=== PATIENT | female | born 1940 | race Hispanic/Latino ===

== ENCOUNTER 2017-04-03 13:18 | Inpatient (IN) | payer OTHER, MEDICARE ==
[2017-04-03 15:26] LABS: Basophils % (Auto) 0.7 % (0.0-1.8); Eosinophils % (Auto) 3.1 % (0.0-4.3); Hematocrit 28.6 % (30.3-42.9); Hemoglobin 9.3 gm/dl (10.1-14.3); Mean Corpuscular HGB Conc 33 % (30-34); Mean Corpuscular Hemoglobin 34 pg (28-32); Mean Corpuscular Volume 105 fl (79-97); Platelet Count 337 K/mm3 (140-440); Red Blood Count 2.71 M/mm3 (3.65-5.03); Red Cell Distribution Width 14.6 % (13.2-15.2); White Blood Count 15.5 K/mm3 (4.5-11.0)
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
[2017-04-03 15:34] LABS: Anion Gap 18 mmol/L; BUN/Creatinine Ratio 41; Blood Urea Nitrogen 33 mg/dL (7-17); Calcium 9.7 mg/dL (8.4-10.2); Carbon Dioxide 21 mmol/L (22-30); Chloride 105.7 mmol/L (98-107); Glucose 123 mg/dL (65-100); Potassium 5.8 mmol/L (3.6-5.0); Sodium 139 mmol/L (137-145)
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
[2017-04-03 16:17] LABS: INR 1.03 (0.87-1.13)
[2017-04-03 16:18] LABS: Partial Thromboplastin Time 27.5 Sec. (24.2-36.6)
[2017-04-03 16:25] LABS: Alanine Aminotransferase 15 units/L (7-56); Albumin/Globulin Ratio 1.8 %; Alkaline Phosphatase 58 units/L (35-129); Total Protein 6.2 g/dL (6.3-8.2)
[2017-04-03 16:26] LABS: Bilirubin,Direct < 0.2 mg/dL (0-0.2)
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
[2017-04-03] MEDS ORDERED: KIONEX PO ONE (17:22)
[2017-04-03] MEDS ORDERED: BOOSTRIX IM ONE (18:48)
[2017-04-03] MEDS ORDERED: BACTRIM DS PO ONE (18:48)
[2017-04-03] MEDS ORDERED: NACL 0.9% 500 ML 500 ML IV ONE (18:51)
[2017-04-03] MEDS ORDERED: D50W (25GM) Syringe IV ONE (20:06)
[2017-04-03] MEDS ORDERED: MORPHINE IV ONE (20:06)
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
[2017-04-04] MEDS ORDERED: MORPHINE IV PRN (00:21)
[2017-04-04] MEDS ORDERED: ZOFRAN IV PRN (00:21)
[2017-04-04] MEDS ORDERED: DULCOLAX PR PRN (00:21)
[2017-04-04] MEDS ORDERED: MILK OF MAGNESIA PO PRN (00:21)
[2017-04-04] MEDS ORDERED: LEVAQUIN 500MG/100ML 500 MG/100 ML BAG IV ONE ×2 (00:45→01:00)
[2017-04-04] MEDS ORDERED: LEVAQUIN 500MG/100ML 500 MG/100 ML BAG IV SCH ×2 (01:00→22:00)
[2017-04-04] MEDS ORDERED: LOVENOX SUB-Q SCH (10:00)
[2017-04-04] MEDS: LOVENOX SUB-Q SCH (11:11)
[2017-04-04 13:14] LABS: Hematocrit 21.4 % (30.3-42.9); Hemoglobin 7.2 gm/dl (10.1-14.3); Mean Corpuscular HGB Conc 34 % (30-34); Mean Corpuscular Hemoglobin 35 pg (28-32); Mean Corpuscular Volume 105 fl (79-97); Platelet Count 218 K/mm3 (140-440); Red Blood Count 2.05 M/mm3 (3.65-5.03); Red Cell Distribution Width 14.6 % (13.2-15.2); White Blood Count 5.5 K/mm3 (4.5-11.0)
[2017-04-04 13:35] LABS: Anion Gap 17 mmol/L; BUN/Creatinine Ratio 26; Blood Urea Nitrogen 23 mg/dL (7-17); Calcium 8.3 mg/dL (8.4-10.2); Carbon Dioxide 21 mmol/L (22-30); Chloride 104.4 mmol/L (98-107); Glucose 159 mg/dL (65-100); Potassium 4.3 mmol/L (3.6-5.0); Sodium 138 mmol/L (137-145)
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
[2017-04-04 17:40] LABS: Iron 36 ug/dL (37-170); Total Iron Binding Capacity 271 mcg/dL (250-450)
[2017-04-04] MEDS: TYLENOL PO PRN (22:17)
[2017-04-05] MEDS ORDERED: LEVAQUIN 250MG/50ML 250 MG/50 ML BAG IV SCH (01:00)
[2017-04-05 06:29] LABS: Basophils % (Auto) 0.9 % (0.0-1.8); Eosinophils % (Auto) 5.2 % (0.0-4.3); Hemoglobin 6.9 gm/dl (10.1-14.3); Mean Corpuscular HGB Conc 35 % (30-34); Mean Corpuscular Hemoglobin 35 pg (28-32); Mean Corpuscular Volume 102 fl (79-97); Platelet Count 198 K/mm3 (140-440); Red Blood Count 1.95 M/mm3 (3.65-5.03); Red Cell Distribution Width 14.5 % (13.2-15.2); White Blood Count 4.9 K/mm3 (4.5-11.0)
[2017-04-05 06:33] LABS: Hematocrit 19.9 % (30.3-42.9)
[2017-04-05 06:44] LABS: Anion Gap 17 mmol/L; BUN/Creatinine Ratio 19; Blood Urea Nitrogen 17 mg/dL (7-17); Carbon Dioxide 22 mmol/L (22-30); Glucose 98 mg/dL (65-100); Potassium 4.1 mmol/L (3.6-5.0); Sodium 143 mmol/L (137-145)
[2017-04-05] MEDS ORDERED: NACL 0.9% 500 ML 500 ML IV NR (08:00)
[2017-04-05] MEDS: FEOSOL PO SCH ×2 (08:55→14:47)
[2017-04-05] MEDS: TYLENOL PO PRN ×2 (08:55→14:47)
[2017-04-05] MEDS: LOVENOX SUB-Q SCH (09:02)
--- NOTE | 2017-04-05 10:47 | Progress Note ---
Hospitalist Physical - Constitutional Vitals: Temp Pulse Resp BP Pulse Ox 98.8 F 97 H 18 115/59 92 04/05/17 08:02 04/05/17 08:02 04/05/17 08:02 04/05/17 08:02 04/05/17 08:02 Results - Labs CBC & Chem 7: 04/05/17 06:15 04/05/17 06:15 Labs: Laboratory Last Values WBC 4.9 K/mm3 (4.5-11.0) 04/05/17 06:15 RBC 1.95 M/mm3 (3.65-5.03) L 04/05/17 06:15 Hgb 6.9 gm/dl (10.1-14.3) L 04/05/17 06:15 Hct 19.9 % (30.3-42.9) L* 04/05/17 06:15 MCV 102 fl (79-97) H 04/05/17 06:15 MCH 35 pg (28-32) H 04/05/17 06:15 MCHC 35 % (30-34) H 04/05/17 06:15 RDW 14.5 % (13.2-15.2) 04/05/17 06:15 Plt Count 198 K/mm3 (140-440) 04/05/17 06:15 Lymph % (Auto) 13.9 % (13.4-35.0) 04/05/17 06:15 [place] % (Auto) 8.7 % (0.0-7.3) H 04/05/17 06:15 Eos % (Auto) 5.2 % (0.0-4.3) H 04/05/17 06:15 Baso % (Auto) 0.9 % (0.0-1.8) 04/05/17 06:15 Lymph # 0.7 K/mm3 (1.2-5.4) L 04/05/17 06:15 [place] # 0.4 K/mm3 (0.0-0.8) 04/05/17 06:15 Eos # 0.3 K/mm3 (0.0-0.4) 04/05/17 06:15 Baso # 0.0 K/mm3 (0.0-0.1) 04/05/17 06:15 Seg Neutrophils % 71.3 % (40.0-70.0) H 04/05/17 06:15 Seg Neutrophils # 3.5 K/mm3 (1.8-7.7) 04/05/17 06:15 PT 14.0 Sec. (12.2-14.9) 04/03/17 15:52 INR 1.03 (0.87-1.13) 04/03/17 15:52 APTT 27.5 Sec. (24.2-36.6) 04/03/17 15:52 Sodium 143 mmol/L (137-145) 04/05/17 06:15 Potassium 4.1 mmol/L (3.6-5.0) 04/05/17 06:15 Chloride 108.0 mmol/L (98-107) H 04/05/17 06:15 Carbon Dioxide 22 mmol/L (22-30) 04/05/17 06:15 Anion Gap 17 mmol/L 04/05/17 06:15 BUN 17 mg/dL (7-17) 04/05/17 06:15 Creatinine 0.9 mg/dL (0.7-1.2) 04/05/17 06:15 Estimated GFR > 60 ml/min 04/05/17 06:15 BUN/Creatinine Ratio 19 % 04/05/17 06:15 Glucose 98 mg/dL (65-100) 04/05/17 06:15 Calcium 8.0 mg/dL (8.4-10.2) L 04/05/17 06:15 Iron 36 ug/dL (37-170) L 04/04/17 16:58 TIBC 271 mcg/dL (250-450) 04/04/17 16:58 Ferritin 80.8 ng/mL (13.0-400.0) 04/05/17 09:15 Total Bilirubin 0.20 mg/dL (0.1-1.2) 04/03/17 15:04 Direct Bilirubin < 0.2 mg/dL (0-0.2) 04/03/17 15:04 Indirect Bilirubin 0.0 mg/dL 04/03/17 15:04 AST 37 units/L (5-40) 04/03/17 15:04 ALT 15 units/L (7-56) 04/03/17 15:04 Alkaline Phosphatase 58 units/L (35-129) 04/03/17 15:04 Troponin T < 0.010 ng/mL (0.00-0.029) 04/03/17 20:08 Total Protein 6.2 g/dL (6.3-8.2) L 04/03/17 15:04 Albumin 4.0 g/dL (3.9-5) 04/03/17 15:04 Albumin/Globulin Ratio 1.8 % 04/03/17 15:04 Vitamin B12 785.2 pg/mL (211-911) 04/04/17 16:58 Blood Type A POSITIVE 04/05/17 09:15 Antibody Screen Negative 04/05/17 09:15 Crossmatch See Detail 04/05/17 09:15
[2017-04-05] MEDS ORDERED: MIRALAX 3350 PO STA (14:17)
[2017-04-05 15:23] LABS: Hematocrit 25.3 % (30.3-42.9); Hemoglobin 8.7 gm/dl (10.1-14.3)
[2017-04-05 15:39] VITALS: BP 130/64
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
[2017-04-05 17:14] LABS: Hematocrit 25.3 % (30.3-42.9); Hemoglobin 8.5 gm/dl (10.1-14.3)
== END 2017-04-05 18:50 | disposition home or self-care (01) | DRG 605 ==
LOC: ED 13:18 → 3A 23:49
PROVIDERS: ADMIT Internal Medicine; ATTEND Internal Medicine
PROC: 30233N1 Transfusion of Nonautologous Red Blood Cells into Peripheral Vein, Percutaneous Approach (ICD-10-PCS; principal; 2017-04-03)
PROC: 3E0234Z Introduction of Serum, Toxoid and Vaccine into Muscle, Percutaneous Approach (ICD-10-PCS; 2017-04-05)
DX: S20.212A Contusion of left front wall of thorax, initial encounter (principal); R65.10 Systemic inflammatory response syndrome (SIRS) of non-infectious origin without acute organ dysfunction; E87.5 Hyperkalemia; I10 Essential (primary) hypertension; E86.0 Dehydration; S00.83XA Contusion of other part of head, initial encounter; D50.9 Iron deficiency anemia, unspecified; V49.49XA Driver injured in collision with other motor vehicles in traffic accident, initial encounter; Y93.89 Activity, other specified; Z90.710 Acquired absence of both cervix and uterus; Z79.899 Other long term (current) drug therapy; Y92.488 Other paved roadways as the place of occurrence of the external cause; Y99.8 Other external cause status; Z82.49 Family history of ischemic heart disease and other diseases of the circulatory system; Z87.891 Personal history of nicotine dependence; Z23 Encounter for immunization
CPT/HCPCS: 36415; 71020; 71260; 80048; 80074; 82270; 82607; 82728; 82747; 83550; 84484; 85014; 85018; 85025; 85027; 85610; 85730; 86850; 86900; 86901; 86920; 90715; 93005; 93010; J1650; J1815; J1956; J7040; P9016; Q9967